=== PATIENT | male | born 2000 ===

== ENCOUNTER 2024-09-06 09:45 | Outpatient (CLI) | payer BC, SELFPAY ==
--- NOTE | 2024-09-06 09:54 | CT_ITS ---
WS: [id number] CT PARANASAL SINUSES HISTORY: CHRONIC SINUSITIS TECHNIQUE: Contiguous 2.5 mm axial images obtained through the sinuses. Images are reconstructed in s agittal and coronal planes. All CT scans at [facility] use at least one of these dose optimiz ation techniques: automated exposure control; mA and/or kV adjustment per patient size (includes targ eted exams where dose is matched to clinical indication); or iterative reconstruction. DLP: 431.18 mGy.cm COMPARISON: None available. Frontal sinuses: Normal. Sphenoid sinus: Small amount of mucoperiosteal thickening along the anterior sphenoid sinuses. No air -fluid levels. Ethmoid sinuses: Negative. Maxillary sinus: Near complete opacification of the RIGHT maxillary sinus. Minimal mucoperiosteal thi ckening in the LEFT maxillary sinus. No air-fluid levels. Ostiomeatal unit: There is complete soft tissue obstructing the RIGHT ostiomeatal unit with mild wide mesfin. There is also small amount of soft tissue obstructing the LEFT ostiomeatal unit. No significant deviation of the nasal septum. No spurring. CT/CT sinus wo con* [id number] IMPRESSION: 1. Near complete opacification of the RIGHT maxillary sinus. Complete obstruct ion of the ostiomeatal unit. 2. Otherwise minimal mucoperiosteal thickening in the sphenoid and LEFT maxill j luis sinus.
== END 2024-09-06 09:46 | disposition home or self-care (01) ==
LOC: RAD 09:49
PROVIDERS: Family Provider Family Medicine; PCP Nurse Practitioner Family; Visit Provider Otolaryngology
DX: J31.0 Chronic rhinitis (principal); J32.9 Chronic sinusitis, unspecified; J34.89 Other specified disorders of nose and nasal sinuses
CPT/HCPCS: 70486